=== PATIENT | female | born 1995 | race Caucasian/White ===

== ENCOUNTER → 2021-10-06 15:17 | Outpatient (CLI) | payer OTHER, SELFPAY ==
[2021-10-06 15:57] LABS: Add Manual Diff / Slide Review NO; Basophils Absolute Auto 0 /uL (0-100); Basophils Percent Auto 0.5 % (0-2); Eosinophils Absolute Auto 100 /uL (0-450); Hematocrit 35.6 % (36-46); Hemoglobin 12.4 g/dL (12.0-16.0); Lymphocytes Absolute Auto 2100 /uL (1100-4500); Lymphocytes Percent Auto 28.6 % (25-40); Mean Corpuscular HGB Conc 34.8 % (30-36); Mean Corpuscular Hemoglobin 32.3 PG (26-34); Mean Corpuscular Volume 92.7 fL (80-100); Monocytes Absolute Auto 500 /uL (0-900); Monocytes Percent Auto 7.2 % (3-14); Neutrophils Absolute Auto 4700 /uL (1500-7000); Neutrophils Percent Auto 62.7 % (50-75); Platelet Count 182 X10^3/uL (150-400); Red Blood Cell Count 3.84 X10^6/uL (4.0-5.2); Red Cell Distribution Width 12.1 % (11.6-14.8); White Blood Cell Count 7.5 X10^3/uL (4.5-11.0)
[2021-10-06 16:54] LABS: Hepatitis B Surface Antigen NEGATIVE s/c (NEGATIVE)
[2021-10-06 17:15] LABS: Hep C Virus Ab w/Reflex Quant NEGATIVE s/c (NEGATIVE)
[2021-10-06 17:19] LABS: HIV 1 & 2 Ab/Ag 4th Gen Combo NEGATIVE (NEGATIVE)
[2021-10-07 07:39] LABS: RPR Screen Non Reactive (Non Reactive)
[2021-10-07 10:42] LABS: Varicella IgG Antibody 1250 index (Immune >165)
== END ==
PROVIDERS: PCP Family Medicine; Referring Provider Family Medicine; Visit Provider Family Medicine
DX: Z34.01 Encounter for supervision of normal first pregnancy, first trimester (principal)
CPT/HCPCS: 36415; 80055; 86787; 86803; 86850; 86900; 86901; 87389

== ENCOUNTER → 2021-12-01 14:15 | Outpatient (CLI) | payer OTHER, SELFPAY ==
[2021-12-03 20:45] LABS: AFP, Serum 37.8 ng/mL (.); Estriol, Free 1.62 ng/mL (.); Inhibin A, Dimeric 165.71 pg/mL (.); Inhibin A, MoM 1.09 (.); Maternal Ethnicity Caucasian (.); Maternal Weight 165 lbs (.); Number of Fetuses No (.); OSBR Risk 1 IN 10000 (.); Results Report (.); Test Results *Screen Negative* (.); hCG, MoM 2.21 (.); hCG, Serum 60186 mIU/mL (.)
== END ==
PROVIDERS: PCP Family Medicine; Referring Provider Family Medicine; Visit Provider Family Medicine
DX: Z34.01 Encounter for supervision of normal first pregnancy, first trimester (principal)
CPT/HCPCS: 36415; 82105; 82677; 84702; 86336

== ENCOUNTER → 2021-12-11 10:48 | Outpatient (CLI) | payer OTHER, SELFPAY ==
--- NOTE | 2021-12-11 10:50 | DI.US.S_ITS ---
PROCEDURE: US OB >= 14 WEEKS FETUS INDICATIONS: ANATOMY SCREENING OUTSIDE/PRIOR DATING DATA: Last menstrual period (LMP): 07/24/21. LMP-based estimated date of delivery (SHANEKA): 04/30/22. First dating scan (date and location): Unknown. Estimated date of delivery (SHANEKA) from first dating scan: Unknown. The calculations are made using the clinical SHANEKA of 04/30/22. TECHNIQUE: Real-time scanning was performed of the fetus, with image documentation and biometric measurements. Endovaginal scanning: Not performed COMPARISON: None. FINDINGS: General: A single living intrauterine gestation is present. Presentation: Variable. Placenta: Placental position is anterior , without previa. Amniotic fluid index: 10.9 cm, normal range is 5-24 cm. Single deepest vertical pocket is 3.4 cm. heart rate: 150 beats per minute. Maternal cervical canal: Closed in 3.7 cm long. Normal lower limit is 2.5 cm. biometrics: Biparietal diameter: 4.5 cm, 19 weeks, five days Head circumference: 17.7 cm, 20 weeks, one day Abdominal circumference: 14.8 cm, 20 weeks, one day Femur length: 3.4 cm, 20 weeks, four days Clinically estimated gestational age: 20 weeks, 0 days Composite gestational age from present scan: 20 weeks, one day Estimated weight and percentile: 344 g, 62 percentile Anatomic survey: Neuro: Ventricles are non-dilated at less than 10 mm. Cisterna magna is normal at 3-11 mm. Cerebellum is normal in size and morphology. Nuchal skin fold: Normal at less than 6 mm between 14-21 weeks gestational age. Face: Nose and lips, facial profile are normal. Spine: No evidence for spina bifida. Heart: 4-chambered heart is present, with normal ventricular outflow tracts. Diaphragm: Diaphragm is intact. Stomach: Left-sided stomach is present. Kidneys: No hydronephrosis. Normal is less than 5 mm in 2nd trimester, less than 7 mm in 3rd trimester. Cord: 3-vessel cord has orthotopic insertion. Bladder: Normal in size. Extremities: All 4 extremities identified. IMPRESSION: 1. Single living intrauterine with appropriate growth compared to the clinical age. 2. Closed cervix and normal amniotic fluid volume. 3. Normal anatomy. We strive to produce accurate, complete, and clear reports of imaging services. To assist us in improving patient care, this report was composed using standard report templates and voice recognition software. Therefore, it may contain abnormal punctuation, insertions and/or omissions. Occasional wrong-word or sound-alike substitutions may occur. Though we review the report and make efforts to correct it, we do recommend that the report be read carefully in proper context to recognize any text inaccuracies. Dictated by: Kaitlyn Saldana M.D. on 12/11/2021 at 14:41 Approved by: Kaitlyn Saldana M.D. on 12/11/2021 at 14:48
== END ==
PROVIDERS: PCP Family Medicine; Referring Provider Family Medicine; Visit Provider Family Medicine
DX: Z34.92 Encounter for supervision of normal pregnancy, unspecified, second trimester (principal); Z3A.20 20 weeks gestation of pregnancy
CPT/HCPCS: 76811

== ENCOUNTER → 2022-02-03 12:22 | Outpatient (CLI) | payer OTHER, SELFPAY ==
[2022-02-03 13:57] LABS: Add Manual Diff / Slide Review NO; Basophils Absolute Auto 0 /uL (0-100); Basophils Percent Auto 0.2 % (0-2); Eosinophils Absolute Auto 100 /uL (0-450); Eosinophils Percent Auto 0.9 % (2-4); Hemoglobin 11.2 g/dL (12.0-16.0); Lymphocytes Absolute Auto 1600 /uL (1100-4500); Lymphocytes Percent Auto 21.4 % (25-40); Mean Corpuscular HGB Conc 34.9 % (30-36); Mean Corpuscular Volume 94.5 fL (80-100); Monocytes Absolute Auto 700 /uL (0-900); Monocytes Percent Auto 8.8 % (3-14); Neutrophils Absolute Auto 5100 /uL (1500-7000); Neutrophils Percent Auto 68.7 % (50-75); Platelet Count 189 X10^3/uL (150-400); Red Blood Cell Count 3.39 X10^6/uL (4.0-5.2); Red Cell Distribution Width 12.4 % (11.6-14.8); White Blood Cell Count 7.4 X10^3/uL (4.5-11.0)
[2022-02-03 14:38] LABS: GTT (PREG) 1 Hour PP 50gm Dose 93 mg/dL (76-139)
== END ==
PROVIDERS: PCP Family Medicine; Referring Provider Family Medicine; Visit Provider Family Medicine
DX: Z34.02 Encounter for supervision of normal first pregnancy, second trimester (principal); Z3A.27 27 weeks gestation of pregnancy
CPT/HCPCS: 36415; 82950; 85025

== ENCOUNTER → 2022-03-31 18:12 | Outpatient (CLI) | payer OTHER, SELFPAY ==
[2022-04-01 15:37] LABS: Strep Grp B PCR NEG for Grp B Strep
== END ==
PROVIDERS: PCP Family Medicine; Visit Provider Family Medicine
DX: Z36.85 Encounter for antenatal screening for Streptococcus B (principal)
CPT/HCPCS: 87653

== ENCOUNTER 2022-04-29 20:28 | Inpatient (IN) | payer OTHER, SELFPAY ==
[2022-04-29 23:40] LABS: Add Manual Diff / Slide Review NO; Basophils Absolute Auto 100 /uL (0-100); Basophils Percent Auto 0.6 % (0-2); Eosinophils Absolute Auto 100 /uL (0-450); Eosinophils Percent Auto 0.6 % (2-4); Hematocrit 34.4 % (36-46); Hemoglobin 11.6 g/dL (12.0-16.0); Lymphocytes Absolute Auto 2200 /uL (1100-4500); Mean Corpuscular HGB Conc 33.7 % (30-36); Mean Corpuscular Volume 92.1 fL (80-100); Monocytes Absolute Auto 1200 /uL (0-900); Monocytes Percent Auto 10.1 % (3-14); Neutrophils Absolute Auto 8000 /uL (1500-7000); Neutrophils Percent Auto 69.7 % (50-75); Platelet Count 200 X10^3/uL (150-400); Red Blood Cell Count 3.73 X10^6/uL (4.0-5.2); White Blood Cell Count 11.5 X10^3/uL (4.5-11.0)
--- NOTE | 2022-04-30 04:14 | P.HPOB_ITS ---
OB HPI Date/Time Date of admission: 04/29/22 Date Patient Seen: 04/30/22 Time Patient Seen: 04:14 History of Present Condition Chief complaint: observation of labor : 1 Para: 0 Estimated Date of Delivery: 04/30/22 Estimated Gestational Age (weeks): 40+0 Narrative: Coretta Montiel is a 27 year old primigravida admitted in early active phase labor now at 40+ 0 weeks gestational age. course has been unco mplicated with firm dating and appropriate milestones throughout. GBS is negative. History of Present care: good care Dating criteria: LMP confirmed by 1st trimester US Ultrasounds: normal 1st trimester US and normal mid trimester US Obstetrical complications: none Medical complications: none Preadmission Labs Blood type: A (+) positive -: Antibody screen: negative, GBS status: negative, HBsAG: negative, HIV: negative and RPR/VDLR: negative -: Chlamydia screen: not detected and Gonorrhea screen: not detected -: Rubella: immune and Varicella: immune HCT: 34.4 HCAB: negative PAP: Normal Quad screen: Normal 1 hr GTT: 93 Prior (ies) History: Primigravida Evaluation Evaluation Baseline heart rate: 135 Variability: Moderate (11-25) monitor accelerations: Present Monitor Decelerations: Absent Contraction Frequency (minutes): 2 Uterine Contraction Intensity: Strong/Firm Category of Tracing: Reactive Status: Category l Dilation (cm): 10 Effacement (%): 100 Dilation: >/=5 cm Effacement: >/=80% station: +1 Position of cervix: anterior Consistency: soft Townsend score: 13 [facility] Medical History (Updated 09/16/21 @ 09:14 by Karishma Germain RN) Anemia (~2012) Mild acid reflux Surgical History [place] teeth removed (~10/2012) Family History (Updated 09/16/21 @ 09:16 by Karishma Germain RN) Grandfather Hypertension Cancer Grandmother Cancer Hypertension Social History marital status: number of children: 0 household members: spouse lives independently: Yes housing: house pets and animals: Yes (2 cats) education level: master's degree occupational status: employed current occupational exposures/hazards: No special amina needs: No travel history: over 6 months ago seatbelt use: always water heater temp set < 120 deg: Yes working smoke detector in home: Yes fire extinguisher in home: Yes carbon monox detector in home: Yes firearms in home: Yes firearms unloaded and locked: Yes do you feel safe at home: Yes Smoking Status: Never smoker second hand exposure: No alcohol intake: former substance use type: does not use during the past year weight has: remained stable well-balanced diet: daily or most days daily servings fruits/ve or more times/day caffeine: Yes (Aware of 200mg ) Type(s) of exercise: aerobic, regular exercise and weight lifting frequency: 5-6 times per week Meds Home Medications and Allergies Home Medications Medication Instructions Recorded Confirmed Type ascorbic acid (vitamin C) 250 mg 250 mg PO DAILY 09/16/21 04/22/22 History tablet prenat.vits,shawnee,wic-[id number] 1 tab PO DAILY 09/16/21 04/22/22 History Allergies Allergy/AdvReac Type Severity Reaction Status Date / Time No Known Drug Allergies Allergy Verified 04/22/22 13:32 OB Exam Vital signs Blood Pressure: 110/58 Pulse Rate: 80 HENMT Head: normal to inspection, normocephalic and atraumatic Eyes General: appearance normal, both eyes and all related structures Resp Effort & Inspection: normal respiratory effort and able to speak in complete sentences Auscultation: clear to auscultation bilaterally Cardio Rate: regular rate Rhythm: regular rhythm Heart Sounds: S1 normal, S2 normal and no murmurs Extremities Lower extremity: Yes normal to inspection GI Inspection: normal to inspection Palpation: Yes soft and Yes no hepatosplenomegaly Uterus Location (Fundal Height): 38 Estimated Weight (lbs): 8 Objective Labs 04/29/22 23:30 Labs: Laboratory Results - last 24 hr 04/29/22 04/29/22 23:30 23:30 WBC 11.5 H RBC 3.73 L Hgb 11.6 L Hct 34.4 L MCV 92.1 MCH 31.0 MCHC 33.7 RDW 13.0 Plt Count 200 Neut % (Auto) 69.7 Lymph % (Auto) 19.0 L [place] % (Auto) 10.1 Eos % (Auto) 0.6 L Baso % (Auto) 0.6 Neut # (Auto) 8000 H Lymph # (Auto) 2200 [place] # (Auto) 1200 H Eos # (Auto) 100 Baso # (Auto) 100 Blood Type A Positive Antibody Screen Negative Assessment and Plan Assessment and Plan Assessment and Plan narrative: ASSESSMENT 1. Intrauterine , 40+0 wks EGA in active labor 2. GBS negative status PLAN 1. Admit for delivery 2. See admission orders.
[2022-04-30 04:26] VITALS: BP 110/58; PULSE 80
[2022-04-30] MEDS: LIDOCAINE 1% 20 ML (05:32)
--- NOTE | 2022-04-30 06:03 | PM.OBPRVD ---
Labor & Delivery Delivery date: 04/30/22 Intrapartal Events: None Cervical ripening method: none Induction method: none Delivery monitor: external FHT and external uterine Route of delivery: Episiotomy description: None L&D Laceration Description: Perineal - 2nd Degree Delivery repair: chromic Estimated blood loss (mL): 350 Anesthesia Type: Epidural and Local Complications: None Narrative: Following a 1 hour and 15 minute 2nd stage, the patient delivered over an intact perineum a vigorous, viable male at 5:15 a.m. in the DEDRICK position with a compound presentation including the 's right-hand. No shoulder dystocia or cord entanglement was noted. Skin to skin contact was initiated immediately and delayed cord clamping performed. Once the umbilical cord was doubly clamped and cut, a cord blood sample was obtained for routine studies. Delivery of the placenta was accomplished with gentle cord traction and suprapubic countertraction. Placenta was inspected and found to be intact with central insertion of a three-vessel cord. Intravenous Pitocin was administered immediately and vaginal bleeding following delivery was moderate but easily controlled. Inspection of the perineum showed a second-degree midline perineal laceration which was repaired using 2-0 chromic catgut suture in the usual manner with local infiltration for additional pain relief. Both mother and tolerated the delivery process well and are both in good condition at completion of the delivery. [place] Baby 1: gender: Male Presentation: vertex Position: Right Occiput Anterior Placenta delivery description: Spontaneous Cord Vessel Description: 3 Vessels score (1 min): 8 score (5 min): 9 weight: 9 lb 6.302 oz Plan for aftercare: Routine care
--- NOTE | 2022-04-30 07:10 | PC.NURSE ---
oxytocin 30u in 500ml. Started at 0525 at 999ml/hr per MD order. All 500ml completed by 07. Unable to document dose in MAY. Would not take due to units being wrong dispite that it is correct.
[2022-04-30] MEDS: ACETAMINOPHEN 325 MG TABLET 650 MG PO (17:17)
[2022-04-30] MEDS: IBUPROFEN 600 MG TABLET PO (17:18)
[2022-04-30] MEDS: LANOLIN OINT 7 GM 1 APPLIC TOP (17:19)
[2022-04-30] MEDS: DERMOPLAST SPRAY 20% 60 ML 1 SPRAY TOP (17:19)
[2022-05-01] MEDS: IBUPROFEN 600 MG TABLET PO ×2 (00:48→08:29)
[2022-05-01] MEDS: ACETAMINOPHEN 325 MG TABLET 650 MG PO ×2 (00:49→08:29)
[2022-05-01 06:55] LABS: Add Manual Diff / Slide Review NO; Basophils Absolute Auto 0 /uL (0-100); Basophils Percent Auto 0.3 % (0-2); Eosinophils Absolute Auto 100 /uL (0-450); Eosinophils Percent Auto 0.7 % (2-4); Hematocrit 29.7 % (36-46); Lymphocytes Absolute Auto 3300 /uL (1100-4500); Lymphocytes Percent Auto 25.1 % (25-40); Mean Corpuscular HGB Conc 33.5 % (30-36); Mean Corpuscular Hemoglobin 30.9 PG (26-34); Mean Corpuscular Volume 92.4 fL (80-100); Monocytes Absolute Auto 1200 /uL (0-900); Monocytes Percent Auto 9.4 % (3-14); Neutrophils Absolute Auto 8500 /uL (1500-7000); Neutrophils Percent Auto 64.5 % (50-75); Platelet Count 194 X10^3/uL (150-400); Red Blood Cell Count 3.22 X10^6/uL (4.0-5.2); Red Cell Distribution Width 13.2 % (11.6-14.8); White Blood Cell Count 13.2 X10^3/uL (4.5-11.0)
[2022-05-01] MEDS: DOCUSATE 100 MG CAPSULE PO (08:29)
[2022-05-01 09:30] VITALS: BP 115/65; PULSE 77; RESP 16; TEMP 37
--- NOTE | 2022-05-01 09:38 | PM.OBDS.1 ---
Discharge Providers Provider Date of admission: 04/29/22 20:28 Discharge Date: 05/01/22 Primary care physician: Alexsandra Padilla DO Consults: 05/01/22 06:00 Consult to Steward/Stewardess Room Routine Comment: Discharge provider: Yuri Chao MD Summary Hospital Course Date Patient Seen: 05/01/22 Time Patient Seen: 09:38 Diagnoses: Intrauterine , 40+ 0 weeks gestational age, delivered by spontaneous vaginal Anemia, chronic Hospital Course: Coretta was admitted late on the night of 04/29/2022 in active labor and early on the morning of 04/30/2022 delivered spontaneously a viable male infant with Apgars of 8/9, with a weight of 9 lb 6.3 oz. she sustained a second-degree perineal laceration which was repaired in the usual manner. Following delivery, mother and baby have both done extremely well mother tolerating regular diet, ambulating independently tolerating a regular, and who has experienced prompt return of bowel and bladder function. She will discharged at this time to home in an afebrile normotensive condition after counseling regarding precautionary symptoms, limitations activity, medications, and plans for follow-up which will be in 6 weeks. Medication at the time of discharge will include continuation of vitamins and iron daily., oxycodone 5 mg tabs #10, Colace 100 mg p.o. b.i.d. as needed, and ibuprofen 600 mg p.o. q.6 hours as needed pain.. Peripartum Data Infant Delivery Method: Natural Vaginal Laceration Description: Perineal - 2nd Degree Episiotomy description: None complications: none 1: Gender: Male Disposition of : home Status at Discharge Cognitive/behavioral status at discharge: oriented Functional status at discharge: independent ambulation Overall status at discharge: patient is progressing back to baseline Time Spent with Patient Time attestation: Total time spent providing and/or coordinating discharge services: Time spent: Less than 30 minutes Objective Labs 05/01/22 06:27 Labs: Laboratory Results - last 24 hr 05/01/22 06:27 WBC 13.2 H RBC 3.22 L Hgb 10.0 L Hct 29.7 L MCV 92.4 MCH 30.9 MCHC 33.5 RDW 13.2 Plt Count 194 Neut % (Auto) 64.5 Lymph % (Auto) 25.1 [place] % (Auto) 9.4 Eos % (Auto) 0.7 L Baso % (Auto) 0.3 Neut # (Auto) 8500 H Lymph # (Auto) 3300 [place] # (Auto) 1200 H Eos # (Auto) 100 Baso # (Auto) 0 Exam Vital Signs (past 8 hours): - 05/01/22 09:30 Temperature 98.6 F Pulse Rate 77 Respiratory Rate 16 Blood Pressure 115/65 Const General: cooperative and comfortable Nutritional Appearance: average body habitus Orientation: alert and oriented x3 HENMT Head: normal to inspection, atraumatic and abrasion Ears: hearing grossly normal bilaterally Face and sinus: face symmetric Eyes General: appearance normal, both eyes and all related structures Conjunctivae: conjunctivae normal Sclera: sclerae normal EOM: EOM intact bilaterally Neck Neck: normal visual inspection Resp Effort & Inspection: normal respiratory effort and able to speak in complete sentences GI Inspection: normal to inspection Palpation: soft, no hepatosplenomegaly and mass (Firm, nontender fundus, U -4) External Female Exam: other (No significant bleeding noted, laceration repair intact with early healing) Extrem General: no calf tenderness Psych Appearance: grossly normal Mental Status: mental status grossly normal Speech and Movement: speech and movement normal Mood: congruent mood Affect: normal affect Attitude: cooperative Thought Process: normal Thought Content: normal Judgment: judgment good Discharge Plan Discharge Plan Patient Disposition: Home Provider Discharge Comment: Please review the written instructions you received when you were discharged from the hospital. Your follow-up appointment will be made for 6 weeks following her delivery and we look forward to seeing you then. If in the meanwhile however you have any concerns, problems, or questions, please contact us at [phone]. Discharge orders & Medications Prescriptions: New docusate sodium 100 mg Capsule 100 mg PO BID PRN (Reason: constipation) Qty: 60 0RF ibuprofen 600 mg Tablet 600 mg PO Q6HR PRN (Reason: Pain, Mild (1-3)) Qty: 30 2RF oxycodone 5 mg Tablet 5 mg PO Q6H PRN (Reason: Pain, Moderate (4-6)) Qty: 10 0RF Continued prenat.vits,shawnee,[id number] Tablet 1 tab PO DAILY ascorbic acid (vitamin C) 250 mg tablet 250 mg PO DAILY Follow up/Referrals: Valerie,Alexsandra, DO [Primary Care Provider] - Yuri Chao MD [Physician] - Discharge Health Status Multidrug resistant organism: No MDRO Diet/Activity/Treatments Diet: Diet as Tolerated Activity: As tolerated Other treatments: [id number] Tylenol may be used for additional pain relief. Over the counter MiraLax may also be used to relieve constipation. Skin/Wound/Dressing Care Report to your healthcare provider any signs of infection, such as:: chills, fever, increased pain, unusual drainage and unusual redness Dressing: N/A Visit Report/Discharge Packet Instructions: DI for Labor and Delivery, Vaginal , DI for and Nipple Soreness, DI for Prescription Opioid Use Stand Alone Forms: Discharge: Care Discharge Data Primary Care Provider: Alexsandra Padilla
== END 2022-05-01 11:10 | disposition home or self-care (01) | DRG 807 ==
PROVIDERS: Family Medicine; Admitting Provider Obstetrics & Gynecology; PCP Family Medicine; Referring Provider Obstetrics & Gynecology; Visit Provider Obstetrics & Gynecology
DX: O70.1 Second degree perineal laceration during delivery (principal); Z37.0 Single live birth; O99.02 Anemia complicating childbirth; Z3A.40 40 weeks gestation of pregnancy
CPT/HCPCS: 36415; 59025; 59050; 59400; 59409; 84112; 85025; 86850; 86900; 86901; G0379

== ENCOUNTER → 2022-06-14 16:13 | Outpatient (CLI) | payer OTHER, SELFPAY ==
[2022-06-14 20:31] LABS: Urine N gonorrhoeae NOT DETECTED
[2022-06-14 21:15] LABS: Urine Chlamydia NOT DETECTED
== END ==
PROVIDERS: PCP Family Medicine; Visit Provider Family Medicine
DX: Z30.430 Encounter for insertion of intrauterine contraceptive device (principal)
CPT/HCPCS: 87491; 87591

== ENCOUNTER → 2023-09-06 14:11 | Outpatient (CLI) | payer OTHER, SELFPAY ==
[2023-09-06 15:07] LABS: Add Manual Diff / Slide Review NO; Basophils Absolute Auto 0 /uL (0-100); Basophils Percent Auto 0.4 % (0-2); Eosinophils Absolute Auto 100 /uL (0-450); Eosinophils Percent Auto 1.1 % (2-4); Hematocrit 40.2 % (36-46); Hemoglobin 13.5 g/dL (12.0-16.0); Lymphocytes Absolute Auto 2900 /uL (1100-4500); Lymphocytes Percent Auto 37.1 % (25-40); Mean Corpuscular HGB Conc 33.7 % (30-36); Mean Corpuscular Hemoglobin 31.6 PG (26-34); Mean Corpuscular Volume 93.7 fL (80-100); Monocytes Absolute Auto 600 /uL (0-900); Monocytes Percent Auto 8.2 % (3-14); Neutrophils Absolute Auto 4200 /uL (1500-7000); Neutrophils Percent Auto 53.2 % (50-75); Platelet Count 233 X10^3/uL (150-400); Red Blood Cell Count 4.29 X10^6/uL (4.0-5.2); Red Cell Distribution Width 12.6 % (11.6-14.8); White Blood Cell Count 7.9 X10^3/uL (4.5-11.0)
[2023-09-06 15:21] LABS: HEMOLYSIS < 15 (0-50); Iron 118 ug/dL (37-170)
[2023-09-06 15:23] LABS: Alanine Aminotransferase 14 IU/L (<35); Albumin 4.7 g/dL (3.5-5.0); Albumin Globulin Ratio 1.5 (1.0-2.8); Alkaline Phosphatase 40 U/L (38-126); Aspartate Aminotransferase 21 IU/L (14-36); BUN Creatinine Ratio 19.3 (6-22); Bilirubin Total 0.6 mg/dL (0.2-1.3); Blood Urea Nitrogen 17 mg/dL (7-17); Calcium 9.1 mg/dL (8.4-10.2); Carbon Dioxide 26 mmol/L (22-32); Chloride 105 mmol/L (98-107); Estimated Glomerular Filt Rate > 60 mL/min (>60); Globulin 3.1 g/dL (1.7-4.1); Glucose 94 mg/dL (70-100); HEMOLYSIS < 15 (0-50); Potassium 4.3 mmol/L (3.4-5.1); Sodium 137 mmol/L (137-145); Total Protein 7.8 g/dL (6.3-8.2)
[2023-09-06 15:31] LABS: Percent Iron Saturation 34 % (15-50); Total Iron Binding Capacity 345 ug/dL (265-497); Transferrin 263 mg/dL (206-381)
[2023-09-06 15:53] LABS: TSH w/ Reflex to FT4 3.29 uIU/mL (0.47-4.68)
[2023-09-06 15:58] LABS: Ferritin 21 ng/mL (6-137)
[2023-09-06 16:29] LABS: Folate > 20.0 ng/mL (2.76-20.0); Vitamin B12 469 pg/mL (239-931)
== END ==
LOC: LAB 14:12
PROVIDERS: PCP Family Medicine; Referring Provider Family Medicine; Visit Provider Family Medicine
DX: R42 Dizziness and giddiness (principal)
CPT/HCPCS: 36415; 80053; 82607; 82728; 82746; 83540; 83550; 84443; 85025